=== PATIENT | male | born 1960 | race Caucasian/White ===

== ENCOUNTER 2017-01-04 11:22 | Emergency (ER) | payer BC ==
[2017-01-04 11:31] VITALS: BP 145/69
--- NOTE | 2017-01-04 11:37 | EDM.PDOC ---
ED HPI ENT - General Chief Complaint: ENT Problem Stated Complaint: [id number] NOSE BLEED SINCE 6 Time Seen by Provider: 01/04/17 11:34 Source of Information: Reports: Patient, RN, RN notes reviewed History Limitations: Reports: No limitations - History of Present Illness INITIAL COMMENTS - FREE TEXT/NARRATIVE: C/O left sided nose bleed since 06:30HRS today. Last one was last . Now has stopped bleeding. Denies injury or pain. Symptom Onset Date: 01/04/17 Symptom Onset Time: 06:30 Timing/Duration: Reports: Constant Severity: moderate Location: Reports: nose Improves with: Reports: Other (direct pressure) Worsens with: Reports: None Associated Symptoms: Reports: no other symptoms - Related Data Allergies/ADRs: Allergies Allergy/AdvReac Type Severity Reaction Status Date / Time No Known Allergies Allergy Verified 01/04/17 11:27 Home Meds: Home Meds Allopurinol [Zyloprim] 300 mg PO DAILY 01/04/17 [History] Aspirin [Ecotrin] 81 mg PO BEDTIME 01/04/17 [History] Gemfibrozil 600 mg PO BID 01/04/17 [History] Rosuvastatin Calcium [Crestor] 20 mg PO BID 01/04/17 [History] Past Medical History HEENT History: Reports: Epistaxis Other HEENT History: multiple times yearly Cardiovascular History: Reports: High cholesterol Musculoskeletal History: Reports: Gout - Infectious Disease History Infectious Disease History: Reports: Chicken pox, Rheumatic Fever - Past Surgical History HEENT Surgical History: Reports: Tonsillectomy Social & Family History - Family History Family Medical History: Noncontributory - Tobacco Use Smoking Status *Q: Never Smoker Second Hand Smoke Exposure: No - Caffeine Use Caffeine Use: Reports: None - Recreational Drug Use Recreational Drug Use: No - Living Situation & Occupation Living situation: Reports: with family ED ROS ENT - Review of Systems Review Of Systems: ROS reveals no pertinent complaints other than HPI. ED EXAM, ENT - Physical Exam Exam: See Below Exam Limited By: No limitations General Appearance: alert, WD/WN, no apparent distress Eye Exam: bilateral eye: normal inspection Ears: normal external exam, normal canal, hearing grossly normal Nose: dried blood (Left nare with tissue packing from home), other (no site of bleeding seen on exam). No: active bleeding Mouth/Throat: Normal inspection Head: atraumatic, normocephalic Neck: normal inspection Respiratory/Chest: no respiratory distress Cardiovascular: regular rate, rhythm Neurological: alert, oriented, normal cognition, normal gait, no motor/sensory deficits Psychiatric: normal affect, normal mood Skin: Warm, Dry, Intact, Normal color, No rash Course - Vital Signs Last Recorded V/S: Last Vital Signs Temp 36.8 C 01/04/17 11:30 Pulse 74 01/04/17 11:30 Resp 22 H 01/04/17 11:30 BP 145/69 H 01/04/17 11:30 Pulse Ox 100 01/04/17 11:30 - Orders/Labs/Meds Meds: Medications Discontinued Medications Generic Name Dose Route Start Last Admin Trade Name Freq PRN Reason Stop Dose Admin Oxymetazoline HCl 10 ml 01/04/17 11:42 Afrin Original 0.05% Nasal [place] KYLER 01/04/17 11:43 ONETIME ONE Departure - Departure Time of Disposition: 11:48 Disposition: Home, Self-Care 01 Condition: good Clinical Impression: Epistaxis, recurrent Forms: ED Department Discharge Additional Instructions: If nose bleed occurs again, use two sprays of the Afrin and pinch firm pressure on nose for 30 minutes. Return to ER if unable to stop bleeding in 30 minutes. Follow up in clinic for referral to ENT specialist.
[2017-01-04] MEDS ORDERED: Oxymetazoline 0.05% Nasal Spray 15 ML Bottle NAS ONE (11:42)
== END 2017-01-04 11:56 | disposition home or self-care (01) ==
LOC: DL.ED 11:22
DX: R04.0 Epistaxis (principal); E78.00 Pure hypercholesterolemia, unspecified; M10.9 Gout, unspecified; Z98.890 Other specified postprocedural states; Z79.82 Long term (current) use of aspirin; Z79.899 Other long term (current) drug therapy
CPT/HCPCS: 99283; A9270

== ENCOUNTER 2021-01-16 05:53 | Day surgery (SDC) | payer BC ==
[2021-01-16] MEDS ORDERED: Sodium Chloride 0.9% 10 ML Syringe FLUSH PRN (06:00)
[2021-01-16] MEDS ORDERED: Dextrose 5%-0.45% NaCl 1,000 ML IV SCH (06:00)
[2021-01-16] MEDS ORDERED: Midazolam 1 MG/ML 2 ML SDV ONE (06:04)
[2021-01-16] MEDS ORDERED: fentaNYL 100 MCG/2 ML SDV ONE (06:04)
[2021-01-16] MEDS ORDERED: fentaNYL 100 MCG/2 ML SDV IV ONE ×2 (06:57→06:58)
[2021-01-16] MEDS ORDERED: Midazolam 1 MG/ML 2 ML SDV IV ONE ×4 (06:58→07:02)
[2021-01-16 09:54] VITALS: BP 132/65; PULSE 51
--- NOTE | 2021-01-16 15:45 | OR ---
DATE: 01/16/2021 PROCEDURE: Total colonoscopy. INSTRUMENT USED: CF-HA176G Olympus video colonoscope. PREMEDICATIONS: Fentanyl 100 mcg intravenous, Versed 3 mg intravenous. The procedure was done under pulse oximetry, BP recording, and elephant keeper. INDICATION: The patient with rectal bleeding and positive FIT. Colonoscopic examination is done for detection of any polypoid lesions and removal, endoscopic hemostasis therapy if needed. DESCRIPTION OF PROCEDURE: Initial rectal exam was unremarkable. Rigid anoscopy showed small internal hemorrhoids without bleeding from them. The colonoscope was passed with ease. Numerous scattered diverticula were noted in the distal left colon along with deformity. The scope was passed with ease up to the ileocecal area. Photographs were taken of the normal-appearing cecum identified by landmarks of appendiceal orifice and double bulged ileocecal folds. No bleeding was noted from any of the visualized areas at the commencement of the examination. The bowel preparation was found to be adequate, Welton scale 2 in all the regions, total score 6. No stricture. No vascular ectasia. No large isolated ulcerations seen. No evidence of diffuse inflammatory bowel disease in the form of friability, contact bleeding, or ulcerations. No polyp or tumor mass identified. Probing the proximal sides of folds and flexures using adequate distention and clearing up the stool material, withdrawal of the scope was made, cecum to rectum time over 6 minutes. No bleeding was noted from any of the visualized areas at the completion of examination. IMPRESSION: 1. Internal hemorrhoids. 2. Diverticulosis. The patient tolerated the procedure well. [facility] /[id number]
== END 2021-01-16 09:22 | disposition home or self-care (01) ==
LOC: DL.ENDO 05:53
PROVIDERS: ATTEND Internal Medicine Gastroenterology
DX: K64.8 Other hemorrhoids (principal); K57.30 Diverticulosis of large intestine without perforation or abscess without bleeding; D69.6 Thrombocytopenia, unspecified
CPT/HCPCS: J2250; J3010; J7042

== ENCOUNTER 2021-08-25 17:04 | Emergency (ER) | payer BC ==
[2021-08-25] MEDS ORDERED: methylPREDNISolone Sodium Succinate 125 MG/2 ML SDV IVPUSH ONE (17:25)
[2021-08-25] MEDS ORDERED: HYDROmorphone 0.5 MG/0.5 ML Syringe IVPUSH ONE (17:25)
--- NOTE | 2021-08-25 17:31 | EDM.PDOC ---
ED HPI GENERAL MEDICAL PROBLEM - General Stated Complaint: BACK PAIN Time Seen by Provider: 08/25/21 17:20 Source of Information: Reports: Patient History Limitations: Reports: No Limitations - History of Present Illness INITIAL COMMENTS - FREE TEXT/NARRATIVE: This 61 yo male patient reports to the ED with left lower back pain radiating to his left hip and up his back. The patient reports about 1 week ago he was changing hoses in his truck when he started to have the pain. The patient reports he has been to the chiropractor, taken Tylenol and ibuprofen with no relief. The patient reports he has not been able to sleep due to the pain in his back. 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: Acetaminophen, NSAIDS Back Pain Score (Numeric/FACES): 10 - Related Data Allergies Allergy/AdvReac Type Severity Reaction Status Date / Time No Known Allergies Allergy Verified 01/16/21 06:31 Home Meds: Home Meds Allopurinol [Zyloprim] 300 mg PO DAILY 01/04/17 [History] Aspirin [Ecotrin EC] 81 mg PO BEDTIME 01/04/17 [History] Rosuvastatin Calcium [Crestor] 20 mg PO BID 01/04/17 [History] Losartan Potassium 50 mg PO DAILY 01/16/21 [History] Magnesium 500 mg PO DAILY 01/16/21 [History] Greene-3 Fatty Acids [Maxepa] 1,000 mg PO DAILY 01/16/21 [History] metFORMIN HCl [Metformin HCl] 1,000 mg PO BID 01/16/21 [History] Past Medical History HEENT History: Reports: Epistaxis, Retinal Detachment Other HEENT History: multiple times yearly Cardiovascular History: Reports: High Cholesterol, Hypertension Respiratory History: Reports: None Gastrointestinal History: Reports: None Genitourinary History: Reports: Chronic Renal Insuffiency Musculoskeletal History: Reports: Gout Neurological History: Reports: None Psychiatric History: Reports: None Endocrine/Metabolic History: Reports: Diabetes, Type II, Obesity/BMI 30+ Hematologic History: Reports: None Immunologic History: Reports: None Oncologic (Cancer) History: Reports: None Dermatologic History: Reports: None - Infectious Disease History Infectious Disease History: Reports: Chicken Pox, Novel Coronavirus, Rheumatic Fever - Past Surgical History Head Surgeries/Procedures: Reports: None HEENT Surgical History: Reports: Cataract Surgery, Detached Retina, Eye Surgery, Tonsillectomy Cardiovascular Surgical History: Reports: None GI Surgical History: Reports: Colonoscopy Male Surgical History: Reports: None Musculoskeletal Surgical History: Reports: None Dermatological Surgical History: Reports: None Social & Family History - Family History Family Medical History: No Pertinent Family History - Caffeine Use Caffeine Use: Reports: None - Living Situation & Occupation Living situation: Reports: with Family ED ROS GENERAL - Review of Systems Review Of Systems: Comprehensive ROS is negative, except as noted in HPI. ED EXAM,LOWER BACK PAIN/INJURY - Physical Exam Exam: See Below Exam Limited By: No Limitations General Appearance: Alert, WD/WN, Moderate Distress Eye Exam: Bilateral Eye: EOMI, Normal Inspection, PERRL Ears: Normal External Exam, Normal Canal, Hearing Grossly Normal, Normal TMs Nose: Normal Inspection, Normal Mucosa, No Blood Throat/Mouth: Normal Inspection, Normal Lips, Normal Teeth, Normal Gums, Normal Oropharynx, Normal Voice, No Airway Compromise Head: Atraumatic, Normocephalic Neck: Normal Inspection, Supple, Non-Tender, Full Range of Motion Respiratory/Chest: No Respiratory Distress, Lungs Clear, Normal Breath Sounds, No Accessory Muscle Use, Chest Non-Tender Cardiovascular: Normal Peripheral Pulses, Regular Rate, Rhythm, No Edema, No Gallop, No JVD, No Murmur, No Rub GI/Abdominal: Normal Bowel Sounds, Soft, Non-Tender, No Organomegaly, No Distention, No Abnormal Bruit, No Mass (Male) Exam: Deferred Rectal (Males) Exam: Deferred Back Exam: Paraspinal Tenderness (left sided) Extremities: Leg Pain (left hip and lateral thigh pain) Neurological: Alert, Normal Mood/Affect, Normal Dorsiflexion, CN II-XII Intact, Normal Plantar Flexion, Normal Gait, Normal Reflexes, No Motor/Sensory Deficits, Oriented x 3 Psychiatric: Normal Affect, Normal Mood Skin Exam: Warm, Dry, Intact, Normal Color, No Rash Lymphatic: No Adenopathy Course - Vital Signs Last Recorded V/S: Last Vital Signs Temp 97.1 F 08/25/21 17:35 Pulse 78 08/25/21 17:35 Resp 14 08/25/21 17:35 BP 159/89 H 08/25/21 17:35 Pulse Ox 99 08/25/21 17:35 - Orders/Labs/Meds Orders: Active Orders 24 hr Category Date Time Status Hip Min 1V w Pelvis Lt [CR] Stat Exams 08/25/21 17:24 Ordered Lumbar Spine 2 or 3V [CR] Urgent Exams 08/25/21 17:24 Ordered Meds: Medications Discontinued Medications Generic Name Dose Route Start Last Admin Trade Name Janessa PRN Reason Stop Dose Admin Hydromorphone HCl 0.5 mg 08/25/21 17:25 08/25/21 17:34 Hydromorphone 0.5 Mg/0.5 Ml Syringe IVPUSH 08/25/21 17:26 0.5 mg ONETIME ONE Administration Methylprednisolone Sodium Succinate 125 mg 08/25/21 17:25 08/25/21 17:34 Methylprednisolone Sodium Succinate 125 Mg/2 Ml Sdv IVPUSH 08/25/21 17:26 125 mg ONETIME ONE Administration - Radiology Interpretation Free Text/Narrative:: [facility] Final Radiology Report Call: [phone] assistance Online chat: [email or web address] Name: ARIANNA PACHECO Age: 61Years M Date: 08/25/2021 SSN: -- : 1960 Study: CR HIP MIN 1V W PELVIS LT Requesting Physician: Dale Ren Images: 3 Addl Studies: Provided Clinical History: lower back and left hip pain Contrast: Contrast Medium: Contrast Amount: Contrast Method: CONFIDENTIALITY STATEMENT This report is intended only for use by the referring physician, and only in accordance with law. If you received this in error, call [phone]. Page 1 of 1 PROCEDURE INFORMATION: Exam: XR Left Hip Exam date and time: 08/25/2021 5:44 PM Age: 61 years old Clinical indication: Other: Lower back and left hip pain TECHNIQUE: Imaging protocol: XR Left hip. Views: 1 view hip with pelvis when performed. COMPARISON: No relevant prior studies available. FINDINGS: Bones/joints: There is no evidence of acute fracture. There is no evidence of joint malalignment or dislocation. Soft tissues: No focal soft tissue swelling. IMPRESSION: 1. No evidence of acute fracture. 2. No evidence of acute dislocation. Thank you for allowing us to participate in the care of your patient. Dictated and Authenticated by: Mark Stuart DO 08/25/2021 6:28 PM Central Time ([place] & [place]) [facility] [place] [facility] Final Radiology Report Call: [phone] assistance Online chat: [email or web address] Name: ARIANNA PACHECO Age: 61Years M Date: 08/25/2021 SSN: -- : 1960 Study: CR LUMBAR SPINE 2 OR 3V Requesting Physician: Dale Ren Images: 3 Addl Studies: Provided Clinical History: lower back and left hip pain Contrast: Contrast Medium: Contrast Amount: Contrast Method: CONFIDENTIALITY STATEMENT This report is intended only for use by the referring physician, and only in accordance with law. If you received this in error, call [phone]. Page 1 of 1 PROCEDURE INFORMATION: Exam: XR Lumbosacral Spine Exam date and time: 08/25/2021 5:47 PM Age: 61 years old Clinical indication: Other: Lower back and left hip pain TECHNIQUE: Imaging protocol: XR of the lumbosacral spine. Views: 2 or 3 views. COMPARISON: CR Hip Min 1V w Pelvis Lt 08/25/2021 5:44 PM FINDINGS: Bones/joints: The lumbar spine demonstrates mild degenerative changes at multiple levels. The facet joints demonstrate mild degenerative hypertrophy and sclerosis. Soft tissues: Unremarkable. IMPRESSION: The lumbar spine demonstrates mild degenerative changes at multiple levels. Thank you for allowing us to participate in the care of your patient. Dictated and Authenticated by: Mark Stuart DO 08/25/2021 6:28 PM Central Time ([place] & [place]) Departure - Departure Time of Disposition: 18:39 Disposition: Home, Self-Care 01 Condition: Fair Clinical Impression: Low back pain Qualifiers: Chronicity: acute Back pain laterality: left Sciatica presence: with sciatica Sciatica laterality: sciatica of left side Qualified Code(s): M54.42 - Lumbago with sciatica, left side - Discharge Information *PRESCRIPTION DRUG MONITORING PROGRAM REVIEWED*: Not Applicable *COPY OF PRESCRIPTION DRUG MONITORING REPORT IN PATIENT JOE: Not Applicable Instructions: Acute Back Pain, Adult, Pain Medicine Instructions, [id number] Forms: ED Department Discharge Care Plan Goals: The patient was advised of the examination results during the visit. The patient was given an IV dose of Solumedrol (125 mg) and an IV dose of Dilaudid while in the ED. The patient was discharged with scripts for Prednisone (20 mg) #10 to take 2 by mouth for 5 days, Flexeril (10 mg) #20 to take 1 by mouth at bedtime as needed and [place] (10/325) #8 to take 1 by mouth every 6 hours as needed. If the patient has any additional symptoms or concerns, the patient should either return to the emergency department or visit his primary care facility. Sepsis Event Note (ED) - Focused Exam Vital Signs: Vital Signs Temp Pulse Resp BP Pulse Ox 08/25/21 17:35 97.1 F 78 14 159/89 H 99 - My Orders Last 24 Hours: My Active Orders 08/25/21 17:24 Hip Min 1V w Pelvis Lt [CR] Stat Lumbar Spine 2 or 3V [CR] Urgent - Assessment/Plan Last 24 Hours: My Active Orders 08/25/21 17:24 Hip Min 1V w Pelvis Lt [CR] Stat Lumbar Spine 2 or 3V [CR] Urgent
[2021-08-25 17:40] VITALS: BP 159/89; PULSE 78
--- NOTE | 2021-08-25 18:28 | CR ---
PROCEDURE INFORMATION: Exam: XR Left Hip Exam date and time: 08/25/2021 5:44 PM Age: 61 years old Clinical indication: Other: Lower back and left hip pain TECHNIQUE: Imaging protocol: XR Left hip. Views: 1 view hip with pelvis when performed. COMPARISON: No relevant prior studies available. FINDINGS: Bones/joints: There is no evidence of acute fracture. There is no evidence of joint malalignment or dislocation. Soft tissues: No focal soft tissue swelling. IMPRESSION: 1. No evidence of acute fracture. 2. No evidence of acute dislocation.
--- NOTE | 2021-08-25 18:29 | CR ---
PROCEDURE INFORMATION: Exam: XR Lumbosacral Spine Exam date and time: 08/25/2021 5:47 PM Age: 61 years old Clinical indication: Other: Lower back and left hip pain TECHNIQUE: Imaging protocol: XR of the lumbosacral spine. Views: 2 or 3 views. COMPARISON: CR Hip Min 1V w Pelvis Lt 08/25/2021 5:44 PM FINDINGS: Bones/joints: The lumbar spine demonstrates mild degenerative changes at multiple levels. The facet joints demonstrate mild degenerative hypertrophy and sclerosis. Soft tissues: Unremarkable. IMPRESSION: The lumbar spine demonstrates mild degenerative changes at multiple levels.
== END 2021-08-25 18:45 | disposition home or self-care (01) ==
LOC: DL.ED 17:04
DX: M54.42 Lumbago with sciatica, left side (principal); I10 Essential (primary) hypertension; E78.00 Pure hypercholesterolemia, unspecified; E11.9 Type 2 diabetes mellitus without complications; E66.9 Obesity, unspecified; Z68.30 Body mass index [BMI] 30.0-30.9, adult; Z79.82 Long term (current) use of aspirin; Z79.84 Long term (current) use of oral hypoglycemic drugs; Z79.899 Other long term (current) drug therapy
CPT/HCPCS: 72100; 73501; 96374; 96375; 99283; J1170; J2930